=== PATIENT | female | born 1980 | race Caucasian/White ===

== ENCOUNTER 2016-10-29 16:50 | Emergency (ER) | payer OTHER ==
[2016-10-29 17:11] VITALS: BP 114/79
--- NOTE | 2016-10-29 17:34 | Emergency Department Report ---
HPI - General Chief Complaint: Extremity Injury, Lower Time Seen by Provider: 10/29/16 17:18 - HPI HPI: 35-year-old female with a history of chronic leg pain presents to the ED complaining of right anterior ankle to foot pain. Patient denies any recent injury. Patient states she has an appointment with her foot doctor this . Patient states pain is just worse in the past couple of days and she one unable to due to she sees her foot doctor on . Patient denies fall or recent injury. Patient denies calf pain. Patient denies fevers/chills/ nausea/vomiting/abdominal pain/chest pain/shortness of breath or any other problem. ED Past Medical Hx - Past Medical History Hx Congestive Heart Failure: No Hx Asthma: No Hx COPD: No Additional medical history: fibriods - Surgical History Past Surgical History?: Yes Additional Surgical History: hysterectomy - Social History Smoking Status: Never Smoker Substance Use Type: None - Medications Home Medications: Home Medications Medication Instructions Recorded Confirmed Last Taken Type medroxyPROGESTERone ACETATE 10 mg PO BID 01/11/14 06/15/14 06/14/14 History [Provera] 10 MG Ibuprofen [Motrin 800 MG tab] 800 mg PO Q6H PRN #30 tablet 04/07/14 06/15/1403/13 Rx 800 MG Acetaminophen [Acetaminophen ORAL 320 mg PO Q6H PRN 06/15/14 06/15/14 06/14/14 History LIQ] 10 ML Docusate Sodium [Colace] 100 mg PO BID PRN #30 capsule 06/17/14 Unknown Rx Ferrous Sulfate [Feosol 325 MG tab] 325 mg PO BID #60 tablet 06/17/14 Unknown Rx Ibuprofen [Motrin 800 MG tab] 800 mg PO Q6H PRN #30 tablet 06/17/14 Unknown Rx oxyCODONE /ACETAMINOPHEN [Percocet 1 tab PO Q4HR #30 tablet 06/17/14 Unknown Rx 5/325 mg] Methocarbamol [Robaxin TAB] 750 mg PO BID #20 tab 10/29/16 Unknown Rx Tramadol ER (Nf) [Ultram ER (Nf)] 50 mg PO Q6H #20 tab 10/29/16 Unknown Rx ED Review of Systems ROS: Stated complaint: FOOT PAIN Other details as noted in HPI Constitutional: denies: chills, fever Eyes: denies: eye pain, eye discharge, vision change ENT: denies: ear pain, throat pain Respiratory: denies: cough, shortness of breath, wheezing Cardiovascular: denies: chest pain, palpitations Endocrine: no symptoms reported Gastrointestinal: denies: abdominal pain, nausea, diarrhea Genitourinary: denies: urgency, dysuria, discharge Musculoskeletal: denies: back pain, joint swelling, arthralgia Skin: denies: rash, lesions Neurological: denies: headache, weakness, paresthesias Psychiatric: denies: anxiety, depression Hematological/Lymphatic: denies: easy bleeding, easy bruising Physical Exam - Physical Exam Vital Signs: Vital Signs 10/29/16 17:07 Temperature 98 F Pulse Rate 80 Respiratory 16 Rate Blood Pressure 114/79 O2 Sat by Pulse 99 Oximetry Physical Exam: GENERAL: Alert and oriented x3, no apparent distress, Normal Gait, atraumatic. HEAD: Head is normocephalic and a-traumatic. EYES: Extra ocular muscles are intact. Pupils are equal, round, and reactive to light and accommodation. NECK: Supple. Non edematous, No carotid bruits. No lymphadenopathy or thyromegaly. No C-spine tenderness LUNGS: Symetrical with respiration, No wheezing, no rales or crackles, CTAB. HEART: S1, S2 present, regular rate and rhythm without murmur, no rubs, no gallops. EXTREMITIES/MUSCULOSKELETAL: No cyanosis, clubbing, rash, lesions or edema. Full ROM bilaterally. UE/LE Pulses 2+ bilaterally. LE and UE 5+ strength bilaterally, straight leg raise negative bilaterally. NEUROLOGIC: No focal Deficit, Cranial nerves II through XII are grossly intact. No loss of sensation, SKIN: Warm and dry, No lesions, No ulceration or induration present. ED Course Vital Signs 10/29/16 17:07 Temperature 98 F Pulse Rate 80 Respiratory 16 Rate Blood Pressure 114/79 O2 Sat by Pulse 99 Oximetry ED Medical Decision Making - Medical Decision Making 35-year-old female presents with chronic pain ED course: Patient received Toradol for paiin . Discussed the patient to keep appointment for with a foot doctor. Vital signs are normal patient is in no acute distress. Patient is alert and oriented and understands all instructions given. Patient will follow up with a foot doctor on . Critical care attestation.: If time is entered above; I have spent that time in minutes in the direct care of this critically ill patient, excluding procedure time. ED Disposition Clinical Impression: Foot pain, right Disposition: DISCHARGED TO HOME OR SELFCARE Is pt being admited?: No Does the pt Need Aspirin: No Condition: Stable Instructions: Plantar Fasciitis (ED), Chronic Pain (ED), Trigger Point Pain (ED ) Additional Instructions: Follow-up with your foot doctor on as instructed. Keep your appointment to your doctor for . The medication should last her until he see a foot doctor on . Prescriptions: Methocarbamol [Robaxin TAB] 750 mg PO BID #20 tab Tramadol ER (Nf) [Ultram ER (Nf)] 50 mg PO Q6H #20 tab Referrals: PRIMARY CARE, [Primary Care Provider] - 3-5 Days Forms: Work/School Release Form Time of Disposition: 18:38
[2016-10-29] MEDS ORDERED: TORADOL IM ONE (17:58)
== END 2016-10-29 18:50 | disposition home or self-care (01) ==
LOC: ED 16:50
DX: M25.571 Pain in right ankle and joints of right foot (principal); Z90.710 Acquired absence of both cervix and uterus
CPT/HCPCS: 96372; 99282; J1885